=== PATIENT | female | born 1995 | race Caucasian/White ===

== ENCOUNTER 2021-01-05 20:14 | Day surgery (SDC) | payer MEDICAID ==
[2021-01-05 20:53] VITALS: BMI 30.5
[2021-01-05] MEDS ORDERED: hydrALAZINE 20 MG/ML VIAL SLOW IVP PRN (21:37)
== END 2021-01-05 22:32 | disposition home or self-care (01) ==
LOC: CSHLD/OP 20:14
PROVIDERS: ATTEND Family Medicine
DX: O26.892 Other specified pregnancy related conditions, second trimester (principal); O99.282 Endocrine, nutritional and metabolic diseases complicating pregnancy, second trimester; O99.512 Diseases of the respiratory system complicating pregnancy, second trimester; O99.332 Smoking (tobacco) complicating pregnancy, second trimester; M54.50 Low back pain, unspecified; E03.9 Hypothyroidism, unspecified; J45.909 Unspecified asthma, uncomplicated; F17.210 Nicotine dependence, cigarettes, uncomplicated; Z3A.27 27 weeks gestation of pregnancy; Z79.899 Other long term (current) drug therapy; Z88.8 Allergy status to other drugs, medicaments and biological substances
CPT/HCPCS: 99282

== ENCOUNTER 2021-04-02 16:08 | Outpatient (CLI) | payer OTHER ==
[2021-04-03 19:22] LABS: SARS-CoV-2 PCR by NAA DETECTED (NotDetected)
== END 2021-04-02 16:09 | disposition home or self-care (01) ==
LOC: CSHLAB 16:08
PROVIDERS: ATTEND Family Medicine
DX: U07.1 COVID-19 (principal)
CPT/HCPCS: U0003; U0005

== ENCOUNTER 2021-04-06 19:30 | Inpatient (IN) | payer OTHER ==
[2021-04-07] MEDS ORDERED: Lidocaine 1% (PF) 30 ML VIAL SC PRN (00:42)
[2021-04-07] MEDS ORDERED: Carboprost 250 MCG/ML AMP IM PRN (00:42)
[2021-04-07] MEDS ORDERED: Diphenoxylate HCl/Atropine Tablet PO PRN (00:42)
[2021-04-07] MEDS ORDERED: NS w/ Oxytocin 30 units 500 ML IV SCH ×3 (00:42→20:04)
[2021-04-07] MEDS ORDERED: Promethazine HCl 25 MG/ML VIAL IM PRN ×4 (00:42→20:04)
[2021-04-07] MEDS ORDERED: Ibuprofen 800 MG TAB PO PRN (00:42)
[2021-04-07] MEDS ORDERED: hydrALAZINE 20 MG/ML VIAL SLOW IVP PRN ×2 (00:42→20:04)
[2021-04-07] MEDS ORDERED: Methylergonovine 0.2 MG/ML VIAL IM PRN (00:42)
[2021-04-07] MEDS ORDERED: Misoprostol 200 MCG TAB PR PRN (00:42)
[2021-04-07] MEDS ORDERED: Acetaminophen 500 MG TAB PO PRN (00:42)
[2021-04-07] MEDS ORDERED: Ondansetron PF 4 MG/2 ML Vial IVP PRN ×4 (00:42→20:04)
[2021-04-07] MEDS ORDERED: Butorphanol Tartrate 1 MG/ML VIAL SLOW IVP PRN (00:42)
[2021-04-07] MEDS ORDERED: HYDROcodone/Acetaminophen 5/325 mg Tablet PO PRN ×2 (00:42→20:04)
[2021-04-07] MEDS: Lactated Ringer's 1,000 ML IV SCH ×2 (00:55→09:02)
[2021-04-07 01:07] VITALS: BMI 31.9
[2021-04-07 01:08] LABS: Hemoglobin 12.4 g/dL (12.0-15.5); Mean Corpuscular HGB CONC 34.3 g/dL (32.0-36.0); Mean Corpuscular Hemoglobin 32.5 pg (27.0-33.0); Mean Corpuscular Volume 94.5 fl (81.6-98.3); Mean Platelet Volume 9.5 fl (7.4-10.4); Platelet Count 306 10x3/uL (150-450); RBC Distribution Width 13.2 % (11.5-14.5); Red Blood Cell (RBC) Count 3.82 10x6/uL (3.90-5.03); White Blood Cell (WBC) Count 12.1 10x3/uL (3.5-10.5)
[2021-04-07] MEDS: Misoprostol 100 MCG TAB VAG SCH ×3 (01:26→22:59)
[2021-04-07 01:40] LABS: Syphilis Antibody Nonreactive (Nonreactive); Syphilis Antibody Index 0.08 S/CO (<1.00 Non-Reactive)
[2021-04-07 01:41] LABS: Hep B Surf Ag Non-Reactive S/CO (NonReactive)
[2021-04-07] MEDS ORDERED: Terbutaline Sulfate 1 MG/ML VIAL ONE (06:00)
[2021-04-07] MEDS ORDERED: Bupivacaine 0.25% HCL 30 ML VIAL ONE (06:00)
[2021-04-07] MEDS ORDERED: Fentanyl 2 mcg/Bup 0.1% Cadd 100 ML ONE ×2 (08:12→15:53)
[2021-04-07] MEDS ORDERED: Fentanyl 2 mcg/Bupivacaine 0.1% Cassette 100 ML EPIDURAL SCH (09:15)
[2021-04-07] MEDS ORDERED: diphenhydrAMINE 50 MG/ML VIAL IVP PRN (09:15)
[2021-04-07] MEDS ORDERED: Naloxone HCl 0.4 mg/ml Vial IVP PRN ×2 (09:15)
[2021-04-07] MEDS ORDERED: Communication Order-Pharmacy FS SCH (09:15)
[2021-04-07] MEDS ORDERED: ePHEDrine Sulfate 50 MG/10 ML VIAL SLOW IVP PRN (09:15)
[2021-04-07] MEDS ORDERED: Lactated Ringer's 500 ML IV PRN (09:15)
[2021-04-07] MEDS ORDERED: Hydrocerin (Eucerin) Cream 120 gm Jar TOP PRN (09:15)
[2021-04-07] MEDS ORDERED: Acetaminophen 325 MG TAB PO PRN (09:15)
[2021-04-07] MEDS ORDERED: Milk Of Magnesia 30 ML UDCUP PO PRN (20:04)
[2021-04-07] MEDS ORDERED: Boostrix 0.5 ML (Tdap) VIAL IM ONE (20:04)
[2021-04-07] MEDS ORDERED: Bisacodyl 10 MG SUPP PR PRN (20:04)
[2021-04-07] MEDS ORDERED: diphenhydrAMINE 25 MG CAP PO PRN (20:04)
[2021-04-07] MEDS ORDERED: Benzocaine-Menthol 82.5 ML CAN TOP PRN (20:04)
[2021-04-07] MEDS ORDERED: Lanolin Ointment 7 GM TUBE TOP PRN (20:04)
[2021-04-07] MEDS: Docusate 100 MG CAP PO SCH (22:33)
[2021-04-07] MEDS: Ibuprofen 800 MG TAB PO SCH (22:34)
[2021-04-08] MEDS: HYDROcodone/Acetaminophen 5/325 mg Tablet PO PRN ×2 (01:35→09:16)
[2021-04-08] MEDS: Ibuprofen 800 MG TAB PO SCH ×2 (05:17→14:02)
[2021-04-08] MEDS ORDERED: Ferrous Sulfate 325 MG TAB PO SCH (08:00)
[2021-04-08] MEDS ORDERED: Prenatal Vitamin 1 TAB PO SCH (09:00)
[2021-04-08] MEDS: Docusate 100 MG CAP PO SCH (09:16)
[2021-04-08 16:37] VITALS: BP 101/55; TEMP 97.7
== END 2021-04-08 19:25 | disposition home or self-care (01) | DRG 807 ==
LOC: CSHLD 04-07 00:28 → CSHANTE 04-07 22:05
PROVIDERS: ADMIT Family Medicine; ATTEND Family Medicine
PROC: 10E0XZZ Delivery of Products of Conception, External Approach (ICD-10-PCS; principal; 2021-04-07)
PROC: 0W8NXZZ Division of Female Perineum, External Approach (ICD-10-PCS; 2021-04-07)
PROC: 10907ZC Drainage of Amniotic Fluid, Therapeutic from Products of Conception, Via Natural or Artificial Opening (ICD-10-PCS; 2021-04-07)
PROC: 0KQM0ZZ Repair Perineum Muscle, Open Approach (ICD-10-PCS; 2021-04-07)
DX: O76 Abnormality in fetal heart rate and rhythm complicating labor and delivery (principal); Z37.0 Single live birth; Z3A.40 40 weeks gestation of pregnancy; Z79.890 Hormone replacement therapy; Z79.899 Other long term (current) drug therapy; E03.9 Hypothyroidism, unspecified; O99.284 Endocrine, nutritional and metabolic diseases complicating childbirth; O69.1XX0 Labor and delivery complicated by cord around neck, with compression, not applicable or unspecified; O70.1 Second degree perineal laceration during delivery
CPT/HCPCS: 36415; 51702; 85027; 86780; 86850; 86900; 86901; 87340; J0595; J2590; J3105; J7120; S0020